=== PATIENT | female | born 1960 | race Caucasian/White ===

== ENCOUNTER 2017-09-25 15:29 | Inpatient (IN) | payer OTHER ==
[~2017-09-25] VITALS: Ht 149.9 cm; Wt 64.0 kg
[~2017-09-25 15:29] MED LIST: ASA-EC81 MG PO; ATROVASTATIN; CLONAZEPAM2 MG PO; FENOFIBRATE145 MG PO; GABAPENTIN300 MG PO; LANTUS SOL100 UNIT/1; LISINOPRIL20 MG PO; QUETIAPINE FUM200 MG PO; SERTRALINE HCL100 MG PO; ZOLPIDEM TARTRA10 MG PO
[2017-09-29] MEDS ORDERED: DOCUSATE SODIU100 MG PO (09:28)
[2017-09-29] MEDS ORDERED: PERCOCET 5-3251 EACH PO (09:30)
[2017-09-29] MEDS ORDERED: CLONAZEPAM1 MG PO (09:30)
[2017-09-29] MEDS ORDERED: ACETAMINOPHEN-1 EAC2 PO (12:45)
== END 2017-09-29 12:52 | disposition home or self-care (01) | DRG 454 ==
LOC: O/R 09-28 05:14 → SURH 09-28 12:19 → PED 09-28 13:20 → SURH 09-28 14:30 → PED 09-29 12:52
PROVIDERS: Orthopaedic Surgery Orthopaedic Surgery of the Spine
PROC: 0RG2071 Fusion of 2 or more Cervical Vertebral Joints with Autologous Tissue Substitute, Posterior Approach, Posterior Column, Open Approach (ICD-10-PCS; 2017-09-28)
PROC: 0RT30ZZ Resection of Cervical Vertebral Disc, Open Approach (ICD-10-PCS; 2017-09-28)
PROC: 07DS3ZZ Extraction of Vertebral Bone Marrow, Percutaneous Approach (ICD-10-PCS; 2017-09-28)
PROC: 0RG20A0 Fusion of 2 or more Cervical Vertebral Joints with Interbody Fusion Device, Anterior Approach, Anterior Column, Open Approach (ICD-10-PCS; principal; 2017-09-28 14:30)
DX: M50.021 Cervical disc disorder at C4-C5 level with myelopathy (principal); M47.12 Other spondylosis with myelopathy, cervical region; E11.9 Type 2 diabetes mellitus without complications; I10 Essential (primary) hypertension